=== PATIENT | male | born 1990 | race Two or more races ===

== ENCOUNTER 2020-12-17 14:38 | Emergency (ER) | payer OTHER ==
[2020-12-17 14:52] VITALS: BP 126/89; PULSE 93; TEMP 98; BMI 26.9
== END 2020-12-17 15:53 | disposition home or self-care (01) ==
LOC: JERFT 14:38
DX: S83.92XA Sprain of unspecified site of left knee, initial encounter (principal); W19.XXXA Unspecified fall, initial encounter; Y92.9 Unspecified place or not applicable
CPT/HCPCS: 73562-TC-LT-FY; 99284-25

== ENCOUNTER 2023-01-16 21:23 | Emergency (ER) | payer OTHER ==
[2023-01-16 21:28] VITALS: BP 140/87; PULSE 79; RESP 18; TEMP 97.7; BMI 59.6
[2023-01-16] MEDS ORDERED: LIDOCAINE PATCH REMOVAL MC SCH (22:00)
[2023-01-16] MEDS ORDERED: LIDOCAINE 4% PATCH TP ONE ×2 (22:06→22:19)
[2023-01-16] MEDS ORDERED: IBUPROFEN 600 MG TABLET (FP) PO ONE ×2 (22:06→22:19)
[2023-01-16] MEDS ORDERED: ACETAMINOPHEN 500 MG TABLET (FP) PO ONE (22:06)
[2023-01-16] MEDS ORDERED: CYCLOBENZAPRINE HCL 10 MG TABLET (FP) PO ONE (22:07)
[2023-01-16] MEDS ORDERED: CYCLOBENZAPRINE HCL 10 MG TABLET (FP) ONE (22:19)
[2023-01-16] MEDS ORDERED: ACETAMINOPHEN 500 MG TABLET (FP) ONE (22:19)
== END 2023-01-16 22:26 | disposition home or self-care (01) ==
LOC: JERFT 21:23
DX: M54.50 Low back pain, unspecified (principal); V49.40XA Driver injured in collision with unspecified motor vehicles in traffic accident, initial encounter; Y92.410 Unspecified street and highway as the place of occurrence of the external cause
CPT/HCPCS: 99283-25